=== PATIENT | female | born 1970 | race Asian ===

== ENCOUNTER 2018-04-20 07:33 | Emergency (ER) | payer BC ==
[~2018-04-20] VITALS: Ht 152.4 cm; Wt 86.2 kg
[2018-04-20 07:48] VITALS: Ht 152.4 cm; Wt 86.2 kg
[2018-04-20 08:50] VITALS: BP 145/98
== END 2018-04-20 09:05 | disposition home or self-care (01) ==
LOC: ED 07:33
DX: M54.41 Lumbago with sciatica, right side (principal); I10 Essential (primary) hypertension
CPT/HCPCS: J1885